=== PATIENT | female | born 1955 | race Caucasian/White ===

== ENCOUNTER 2019-06-26 16:27 | Inpatient (IN) | payer OTHER ==
[~2019-06-26] VITALS: Ht 137.2 cm; Wt 164.7 kg
[~2019-06-26 16:27] MED LIST: 12 HOUR COLD R120 M1; ADVAIR 250-501 EACH INH; ADVAIR HFA 230M12 GM; ADVAIR HFA 230M12 GM INH; ALBUTEROL2.5 MG/0.1 INH; ASPIR 8181 MG PO; ASPIRIN81 M2 PO; ATORVASTATIN CA40 MG PO; BUSPIRONE HCL10 MG PO; BUSPIRONE HCL15 MG PO; CIPRO500 MG PO; COMPAZINE25 MG PO; CYMBALTA20 MG PO; CYMBALTA30 MG PO; CYMBALTA60 MG PO; DIABETA 5MG TABL5 MG PO; DUONEB 2.5-0.5 M3 ML INH; FLAGYL500 MG PO; FLONASE 0.05%50 MCG NASAL; GLUCOSAMINE CH1 EA10 PO; GLUCOTROL5 MG PO; HUMALOG100 UNIT/2 SUBQ; HYDROCODONE-AP1 EAC6 PO; IRON325 PO; KLOR-CON 1010 MEQ; LASIX 20 MG TAB20 MG PO; LEVEMIR100 UNIT/1 SUBQ; LIPITOR 40 MG T40 M1 PO; LISINOPRIL20 MG PO; MACROBID 100 M100 M1 PO; MELATONIN3 MG PO; MILK OF MA2400 MG/10 PO; MIRALAX17 GM PO; MUCINEX TA600 MG/TA2 PO; NEURONTIN600 MG PO; NORCO 5-325 TA1 EACH; NORCO 5-325 TA1 EACH PO; NORVASC5 MG PO; NYAMYC15 GM TOP; ONDANSETRON HCL4 M2 PO; OXYBUTYNIN 5 MG5 M2 PO; PAIN RELIEVER325 MG PO; PHENERGAN 25 MG25 M1 PO; PROAIR HFA8.5 GM; PROAIR HFA8.5 GM INH; REGLAN 10 MG TA10 MG PO; SENOKOT-S1 TA1 PO; SINGULAIR 10 MG10 M1 PO; SPIRIVA INH; TRAZODONE HCL100 MG PO; VESICARE 5 MG TA5 MG PO; XANAX 0.25 MG0.25 MG; XANAX 0.25 MG0.25 MG PO; ZESTRIL40 MG PO; ZOFRAN ODT4 MG; ZPAK PO; ZYRTEC10 MG PO; [UNRECOGNIZED DRUG - OTHER]
[2019-06-26] MEDS ORDERED: ALLOPURINOL 10100 M2 PO (16:32)
[2019-06-26 16:33] VITALS: BP 192/68
[2019-06-26] MEDS ORDERED: REPLESTA50000 UNIT PO (16:35)
[2019-06-26] MEDS ORDERED: IPRAT-ALBUT 0.5-3 ML INH (16:37)
[2019-06-26] MEDS ORDERED: LOPERAMIDE1 MG/7.5 M PO (16:39)
[2019-06-26] MEDS ORDERED: MELATONIN3 M1 PO (16:49)
[2019-06-26] MEDS ORDERED: UNICOMPLEX M TA1 TA1 PO (16:50)
[2019-06-26 16:52] LABS: BE(vivo) 1.5 mmol/L (-2 to +3); HCO3 25.7 mmol/L (22.0-26.0); PCO2 38.9 mmHg (35.0-45.0); PO2 79.8 mmHg (80.0-100.0); pH 7.438 (7.360-7.450); sO2 96.2 % (92.0-98.0)
[2019-06-26] MEDS ORDERED: NEOSPORIN OINT1 EACH TOP (16:52)
[2019-06-26] MEDS ORDERED: PERCOCET 5-3251 EACH PO (16:53)
[2019-06-26] MEDS ORDERED: PAZEO2.5 ML OPHTHALMIC (16:55)
[2019-06-26] MEDS ORDERED: CVS SENNA PLUS1 EACH PO (16:56)
[2019-06-26] MEDS ORDERED: TOPROL XL25 MG PO (17:00)
[2019-06-26] MEDS ORDERED: MAPAP325 MG PO (17:01)
[2019-06-26] MEDS ORDERED: ALPRAZOLAM 0.50.5 MG PO (17:02)
[2019-06-26 17:18] LABS: HEMATOCRIT 29.6 % (37.0-47.0); HEMOGLOBIN 9.8 gm/dL (12.0-15.0); MCH 29.6 pg (26.0-34.0); MCV 89.5 fL (80.0-100.0); PLATELET COUNT 157 thou/uL (150-400); RBC 3.31 mil/uL (4.20-5.00); RDW 16.3 % (10.5-14.5); WBC 8.3 thou/uL (4.0-11.0)
[2019-06-26 17:27] LABS: ANION GAP 9 mmol/L (7-16); BUN 28 mg/dL (7-18); CALCIUM 9.3 mg/dL (8.5-10.1); CHLORIDE 91 mmol/L (98-107); CO2 30 mmol/L (21-32); CREATININE 2.1 mg/dL (0.6-1.0); GLUCOSE 350 mg/dL (74-106); POTASSIUM 4.8 mmol/L (3.5-5.1); SODIUM 130 mmol/L (136-145)
[2019-06-26 17:32] LABS: APTT 33.6 Seconds (24.5-32.8); INR 1.3; PROTIME 13.7 Seconds (9.3-11.4)
[2019-06-26 17:38] LABS: ALBUMIN 3.2 g/dL (3.4-5.0); MAGNESIUM 1.4 mg/dL (1.8-2.4); SGOT 43 U/L (15-37); SGPT 34 U/L (30-65); TOTAL BILIRUBIN 1.9 mg/dL (<0.1-1.0)
[2019-06-26 17:43] LABS: ABSOLUTE NEUTROPHILS 6.7 thou/uL (1.4-8.2); ANISOCYTOSIS 1+
[2019-06-26 17:55] LABS: TROPONIN-I <0.06 ng/mL (<0.06)
[2019-06-26 18:37] VITALS: BP 167/74
[2019-06-26 18:44] LABS: URINE BILIRUBIN NEGATIVE (Negative); URINE BLOOD 3+ (Negative); URINE CLARITY CLOUDY; URINE COLOR YELLOW; URINE GLUCOSE-RANDOM* NEGATIVE (Negative); URINE KETONES NEGATIVE (Negative); URINE PROTEIN (DIPSTICK) 2+ (Negative); URINE SPECIFIC GRAVITY 1.015 (1.005-1.035); URINE UROBILINOGEN 0.2 E.U./dl (0.2-1.0)
[2019-06-26 18:53] LABS: URINE LEUKOCYTES-REFLEX 3+ (Negative); URINE NITRITE-REFLEX POSITIVE (Negative)
[2019-06-26 18:56] LABS: BACTERIA-REFLEX >30 Many /HPF (None Seen); CASTS None Seen /LPF (None Seen); CRYSTALS None Seen /LPF (None Seen); MUCUS 4-6 Moderate strn/LPF (None Seen); SQUAMOUS 4-10 Moderate /LPF (0-3); TRANSITIONAL EPITHEL CELL 4-10 Moderate /LPF (None Seen); URINE RBC >20 Many /HPF (0-2); URINE WBC-REFLEX >25 Many /HPF (0-5)
[2019-06-26 19:31] VITALS: BP 118/62
[2019-06-26 19:43] VITALS: BP 142/73
--- NOTE | 2019-06-26 22:34 | NUR ---
ASSUMED ARE FROM ED PT UPON ARRIVAL TO UNIT NOTED TO BE SOA WHEN MOVED TO BED, NON-PROD COUGH NOTED LUNG SOUNDS DIMINSHED THROUGHOUT, RESP TREATMENTS ORDERED, DATA BASE AND ASSESSMNET COMPLETED. RESTORATIVE REHAB AIDE SHOWS [address] . DISUSSED PLAN OF CARE AND PT AGREEMENT AND VERBALIZED UNDERSTANDING.
[2019-06-26 23:57] VITALS: BP 126/83
[2019-06-27 04:31] VITALS: BP 132/80
[2019-06-27 07:11] VITALS: BP 129/88
--- NOTE | 2019-06-27 07:36 | EKG ---
[address] [place] [place] [address] ELECTROCARDIOGRAM REPORT Name: JOSE TSANG Room #: 351-P ADM IN M.R.#: [id number] Admission: 06/26/19 Attend Phys: Macho Elder Discharge: Date of : 55 Report #: [id number] THIS REPORT FOR: //name// [facility] ED Test Date: 2019-06-26 Test Time: 17:53:52 Pat Name: JOSE TSANG Department: Room: [facility] Gender: F Biometrics Technician: IAN : 1955 Requested By: Edgar Moncada Order Number: [id number] MD: Roshan Keyes Measurements Intervals [place] Rate: 127 P: 63 RI: 137 QRS: 26 QRSD: 79 T: 18 QT: 326 QTc: 475 Interpretive Statements Sinus tachycardia Nonspecific ST and T wave abnormality Compared to ECG 05/24/2016 23:11:18 Nonspecific change in the ST and T-wave segments Electronically Signed On 06-27-2019 7:36:25 ROVER TENDER by Roshan Keyes [email or web address] <ELECTRONICALLY SIGNED> By: Roshan Keyes MD, [facility] 06/27/19 0736 [id number] Roshan Keyes MD, [facility] /EPI
[2019-06-27 11:21] VITALS: BP 129/77
--- NOTE | 2019-06-27 12:02 | NUR ---
Nutrition: Assessed due to consult for obesity, BMI 87.5 kg/m2 per wt of 363#. Resides at nursing facility, admit w/ sepsis, COPD, hypoxia, AMS, ANGELINA. Hx: COPD, DM. No weight hx to review x 4 yrs. Limited in food options at care center and food prepared by staff. She does on occasion travel to market for things like spinach, fresh produce, cottage cheese. Uses motorized wheelchair per EMR. Wt loss likely to be very minimal given activity limitations, but RD heavily focused on portion control, better food swaps, and limit carb intake to ideally 30 g/meal. Explained example of protein meal paired w/ 30 g CHO. Discussed snacks of fruit/vegetables w/ boiled egg for example. Encouraged pt to be proactive and make menu changes while here to limit CHO/calorie intake. Low nutrition risk otherwise.
--- NOTE | 2019-06-27 12:21 | NUR ---
INITIAL ASSESSMENT: Received consult due to pt being admitted from nursing facility. SW reviewed chart and spoke with nursing and attending physician. Pt was admitted from [facility] due to sepsis/COPD. TRACIE met with pt at bedside. Introduced role of SW. Pt is alert/orientated x 4. Pt reports she has lived at [place] for about 6 years. Pt is normally w/c bound and is on 3L of continuous O2 at the facility. Pt confirms plan to return to [facility] when medically stable. Pt requested SW contact her dtr, Rea, to provide update. SW left voice message for Rea. discharge planner to fax clinical info to [facility] for review. Pt may be ready for discharge back to [facility] on Tuesday or over the holiday weekend. TRACIE is following to assist as needed with discharge planning.
--- NOTE | 2019-06-27 15:00 | NUR ---
DISCHARGE PLANNING. ANTICIPATED DISCHARGE PLANNED FOR TUESDAY. PATIENT RESIDES AT [facility] UNIT. PLAN IS FOR PATIENT TO RETURN TO [facility] ONCE MEDICALLY READY FOR DISCHARGE. IRAIDA THOMAS ADMISSIONS AWARE AND COMPLETED BEDSIDE EVAL WITH PATIENT TODAY. CLINICAL INFORMATION FAXED TO [facility]. FOLLOWING TO ASSIST.
[2019-06-27 15:05] VITALS: BP 125/75
--- NOTE | 2019-06-27 19:39 | NUR ---
PT is A&OX3, PT's vs are stable, RN has reported to dr about pt's hgb 5.3 today, new order received.pt does not have n/v and s/s of GI bleeding.
[2019-06-27 19:41] VITALS: BP 136/79
--- NOTE | 2019-06-27 19:45 | NUR ---
pt is A&OX3, PT is continuing IV abx and BS management, pt's vs and o2sat are stable.
[2019-06-28 03:21] VITALS: BP 150/83
--- NOTE | 2019-06-28 04:13 | NUR ---
Assumed pt care at 1900. Pt is A/OX4,pleasant with no anxiety noted this shift. VSS. C/o a headache medicated with Tylenol with relief reported at this time. Female catheter in place and patent,had a large BM this morning;used a bedpan. Resting quietly without any distress,oxygen on at 4L/NC. Fall precautions in place. Contact isolation maintained.
[2019-06-28 07:13] VITALS: BP 138/79
[2019-06-28 11:42] VITALS: BP 150/88
[2019-06-28 16:23] VITALS: BP 172/85
--- NOTE | 2019-06-28 18:48 | NUR ---
pt is A&OX3, PT is continuing iv ABX and BS management, RN has called dr to report pt's BS (500-600), and positive Urine culture, pt's insulin dose has increase and IV abx has changed, RN has reported to dr about new consult endocrinology cannot reach today, RN will report to next shift to follow up.pt is continuing o2 3L/min/nc, pt's vs are stable , pt denies pain ,n/v and sob at this time.
[2019-06-28 19:08] VITALS: BP 155/85
[2019-06-29 03:35] VITALS: BP 139/78
[2019-06-29 04:55] LABS: CALCIUM 9.8 mg/dL (8.5-10.1); CREATININE 1.4 mg/dL (0.6-1.0); POTASSIUM 4.4 mmol/L (3.5-5.1)
--- NOTE | 2019-06-29 07:24 | NUR ---
ISO PRECAUTIONS IN PLACE FOR MRSA IN NARES. BREATHING TX PER POC. BLOOD SUGAR MANAGEMENT IS THE GOAL, SEE LABS FOR AMOUNTS. EXTERNAL CATH IN PLACE DUE TO MOBILITY AND BEING ON LASIX. CONSULT FOR LAYBOY OPERATOR CALLED YESTERDAY, AND HE WILL BE OUT OF TOWN UNTIL TUESDAY. PT STATES NO PAIN. VSS STABLE, AND TELE SHOWS SR. HOURLY ROUNDING.
[2019-06-29 08:00] VITALS: BP 141/84
[2019-06-29] MEDS ORDERED: CEFUROXIME500 MG PO (08:24)
[2019-06-29] MEDS ORDERED: LANTUS SUBQ (08:25)
[2019-06-29] MEDS ORDERED: HUMALOG100 UNIT/1 SUBQ (08:25)
--- NOTE | 2019-06-29 09:57 | NUR ---
PATIENT TO DC TODAY TO RETURN TO [facility]. ARRANGED VAN FOR [id number] VIA [employer]. CALLED DTR 3X AND PHONE NUMBER NO T ACCEPTING MESSAGES. FAXED ORDERS TO [facility] AND NOTIFIED ADMISSIONS OF DC. NO FURTHER NEEDS
--- NOTE | 2019-06-29 11:33 | NUR ---
Assumed care approx. 0700 this AM. Discharge orders obtained. Chart copy made and sent with patient. IV and tele dc'd. Report called to [place]; a call back number was left for the charge nurse to call back for an update. Pt left at 1120 via transporter and wheelchair van on 4LNC. Pt was on 3LNC but was short of breath from transporting from the bed to wheelchair. Will wait for facility to call for an update.
== END 2019-06-29 11:20 | DRG 871 ==
LOC: ER 16:27 → 3W 18:23 → EROBS 18:23 → 3W 19:35
PROVIDERS: Emergency Medicine; ADMIT Hospitalist
DX: A41.9 Sepsis, unspecified organism (principal); J15.6 Pneumonia due to other Gram-negative bacteria; J96.90 Respiratory failure, unspecified, unspecified whether with hypoxia or hypercapnia; J44.0 Chronic obstructive pulmonary disease with (acute) lower respiratory infection; N39.0 Urinary tract infection, site not specified; Z68.45 Body mass index [BMI] 70 or greater, adult; E66.01 Morbid (severe) obesity due to excess calories; J45.909 Unspecified asthma, uncomplicated; F41.9 Anxiety disorder, unspecified; F32.9 Major depressive disorder, single episode, unspecified; E78.5 Hyperlipidemia, unspecified; M19.90 Unspecified osteoarthritis, unspecified site; E11.40 Type 2 diabetes mellitus with diabetic neuropathy, unspecified; D64.9 Anemia, unspecified; N18.9 Chronic kidney disease, unspecified; G47.33 Obstructive sleep apnea (adult) (pediatric); E11.22 Type 2 diabetes mellitus with diabetic chronic kidney disease; B96.89 Other specified bacterial agents as the cause of diseases classified elsewhere; I12.9 Hypertensive chronic kidney disease with stage 1 through stage 4 chronic kidney disease, or unspecified chronic kidney disease; B96.4 Proteus (mirabilis) (morganii) as the cause of diseases classified elsewhere; Z79.4 Long term (current) use of insulin; Z90.710 Acquired absence of both cervix and uterus; Z86.14 Personal history of Methicillin resistant Staphylococcus aureus infection; Z88.0 Allergy status to penicillin; Z79.899 Other long term (current) drug therapy
CPT/HCPCS: 10879

== ENCOUNTER 2020-01-27 22:10 | Inpatient (IN) | payer OTHER ==
[~2020-01-27] VITALS: Ht 139.7 cm; Wt 167.7 kg
[~2020-01-27 22:10] MED LIST changes: +ALLOPURINOL 10100 M2 PO; +ALPRAZOLAM 0.50.5 MG PO; +CEFUROXIME500 MG PO; +CVS SENNA PLUS1 EACH PO; +HUMALOG100 UNIT/1 SUBQ; +IPRAT-ALBUT 0.5-3 ML INH; +LANTUS SUBQ; +LOPERAMIDE1 MG/7.5 M PO; +MAPAP325 MG PO; +MELATONIN3 M1 PO; +NEOSPORIN OINT1 EACH TOP; -OXYBUTYNIN 5 MG5 M2 PO; +OXYBUTYNIN ER 55 M1 PO; +PAZEO2.5 ML OPHTHALMIC; +PERCOCET 5-3251 EACH PO; +REPLESTA50000 UNIT PO; +TOPROL XL25 MG PO; +UNICOMPLEX M TA1 TA1 PO
[2020-01-27 22:11] VITALS: BP 146/68
[2020-01-27 22:42] LABS: URINE BILIRUBIN NEGATIVE (Negative); URINE BLOOD 3+ (Negative); URINE CLARITY SL CLOUDY; URINE COLOR YELLOW; URINE GLUCOSE-RANDOM* NEGATIVE (Negative); URINE KETONES NEGATIVE (Negative); URINE PROTEIN (DIPSTICK) 2+ (Negative); URINE SPECIFIC GRAVITY 1.015 (1.005-1.035); URINE UROBILINOGEN 0.2 E.U./dl (0.2-1.0)
[2020-01-27 22:48] LABS: URINE LEUKOCYTES-REFLEX 2+ (Negative); URINE NITRITE-REFLEX POSITIVE (Negative)
[2020-01-27 22:48] LABS: ABSOLUTE NEUTROPHILS 5.3 thou/uL (1.4-8.2); BASOPHILS 0.2 % (0.0-2.0); EOSINOPHILS 0.1 % (0.0-3.0); HEMATOCRIT 31.2 % (37.0-47.0); HEMOGLOBIN 10.6 gm/dL (12.0-15.0); MCH 30.1 pg (26.0-34.0); MCV 88.6 fL (80.0-100.0); MONOCYTES 7.1 % (1.0-8.0); PLATELET COUNT 111 thou/uL (150-400); POLYS 79.6 % (36.0-66.0); RBC 3.52 mil/uL (4.20-5.00); RDW 16.2 % (10.5-14.5); WBC 6.6 thou/uL (4.0-11.0)
[2020-01-27 22:49] LABS: CALCIUM 8.3 mg/dL (8.5-10.1); CREATININE 1.5 mg/dL (0.6-1.0); POTASSIUM 3.9 mmol/L (3.5-5.1)
[2020-01-27 22:50] LABS: BACTERIA-REFLEX >30 Many /HPF (None Seen); CASTS None Seen /LPF (None Seen); CRYSTALS None Seen /LPF (None Seen); MUCUS None Seen strn/LPF (None Seen); SQUAMOUS None Seen /LPF (0-3); URINE RBC >20 Many /HPF (0-2); URINE WBC-REFLEX >25 Many /HPF (0-5)
[2020-01-27] MEDS ORDERED: BREO ELLIPTA 11 EACH INH (22:50)
[2020-01-27] MEDS ORDERED: CYMBALTA30 MG PO (22:52)
[2020-01-27] MEDS ORDERED: GAS RELIEF80 MG PO (22:54)
[2020-01-27] MEDS ORDERED: GLUCOSAMINE HC500 M1 PO (22:55)
[2020-01-27] MEDS ORDERED: FUROSEMIDE 40 M40 M1 PO (22:58)
[2020-01-27] MEDS ORDERED: PERCOCET 5-3251 EACH PO (23:04)
[2020-01-27] MEDS ORDERED: SELSUN BLUE207 M2 TOP (23:08)
[2020-01-27] MEDS ORDERED: SALINE NOSE SPR45 ML NASAL (23:08)
[2020-01-27] MEDS ORDERED: SENNA PLUS TAB1 EACH PO (23:09)
[2020-01-27] MEDS ORDERED: SPIRIVA18 MCG INH (23:14)
[2020-01-27] MEDS ORDERED: TOPROL XL25 MG PO (23:14)
[2020-01-27] MEDS ORDERED: XANAX 0.5 MG0.5 M1 PO (23:16)
[2020-01-27] MEDS ORDERED: TYLENOL325 M1 PO (23:17)
[2020-01-28] VITALS (7 sets, daily range): BP systolic 126–149; BP diastolic 57–78
[2020-01-28 00:59] LABS: BE(vivo) 5.2 mmol/L (-2 to +3); HCO3 29.2 mmol/L (22.0-26.0); PCO2 40.9 mmHg (35.0-45.0); PO2 58.6 mmHg (80.0-100.0); pH 7.472 (7.360-7.450)
[2020-01-28 02:10] LABS: CHOLESTEROL 91 mg/dL (<200); HDL CHOLESTEROL 27 mg/dL (>40); LDL CHOLESTEROL 45 mg/dL (<100); TC:HDL 3.4 Ratio (Not establshd); TRIGLYCERIDE 98 mg/dL (<150); VLDL 20 mg/dL (<40)
[2020-01-28 02:12] LABS: SERUM ASSESSMENT Clear
--- NOTE | 2020-01-28 06:52 | NUR ---
PT ADMITTED TO ROOM 353 AT 0255. INITIALLY BREATHING VERY LABORED WITH SIGNIFICANT CONGESTION HEARD WITHOUT STETHESCOPE. PT GIVEN IV LASIX 20 MG X1 WELL BREATHING TX AND STERIODS PER PHYSICIAN ORDER. PT REMAINS TACHYPNIC (RATE 25-28) BUT FEELS LESS SOA. LUNGS REMAIN COARSE WITH SCATTERED RALES. MONITOR SR-ST, 90-110. CERVANTES DRAINING ADEQUATE AMOUNT OF URINE.
[2020-01-28 12:31] LABS: ALBUMIN 2.7 g/dL (3.4-5.0); DIRECT BILIRUBIN < 0.1 mg/dL (<0.1-0.2); SGPT 30 U/L (30-65); TOTAL BILIRUBIN 0.4 mg/dL (0.2-1.0); TOTAL PROTEIN 6.5 g/dL (6.4-8.2)
[2020-01-28 14:36] LABS: SGOT 48 U/L (15-37)
--- NOTE | 2020-01-28 15:23 | NUR ---
INITIAL ASSESSMENT: Received consult. TRACIE reviewed chart and spoke with nursing and attending physician. Pt was admitted from [facility]. Pt in Enhanced Isolation. Pt had positive COVID-19 test. SW placed call to pt's room. No answer. SW attempted to reach pt's dtr, Rea, via phone. Per chart, pt has lived at [place] for about 6 years. Pt is normally w/c bound and is on 3L of continuous O2 at the facility. TRACIE to fax clinical info to [place] for review. TRACIE is following to assist as needed with discharge planning.
--- NOTE | 2020-01-28 16:03 | NUR ---
ASSUMED PATIENT CARE TODAY AT APPROXIMATELY 7AM. PATIENT AWAKE ALERT ORIENTED THROUGHOUT SHIFT. MEDS AND ASSESSMENTS CHARTED. O2 SATS REMAINED STABLE ON 4LNC. CERVANTES WITH GOOD URINE OUTPUT. COVID RESULTS POSITIVE THIS SHIFT. DR. WHITEHEAD CONSULTED.
--- NOTE | 2020-01-28 21:27 | NUR ---
PT RESTING IN BED WATCHING TV. O2 PER NC 4L. LUNGS COARSE PT SOA WITH CONVERSATION AND MOVEMENT. PT OBESE GENERALIZED EDEMA. DISCUSSED WITH PT FIRST DOSE OF REMDESIVIR AND REVIEWED HER CONSENT AND PT STATED SHE HOPES THAT ALL OF THE MEDICATIONS IMPROVE HOW CLOGGED HER EARS ARE SO SHE CAN HEAR BETTER. PT ASSISTED STAFF WITH REPOSITIONING. BILLY TO ANGLE. PT COMPLIANT WITH MEDS AND HS SNACK. PRN ANXIETY PROVIDED. PT CALLS FOR ASSISTANCE.
--- NOTE | 2020-01-28 22:48 | NUR ---
PT HAS APPROXIMATELY 50CC LEFT OF REMDESIVIR LOADING DOSE. PT REPORTED HANDS FEELING LIKE SKIN IS TIGHT AND SHINY LIKE A BALLOON. PT DOES NOT HAVE AN INFILTRATED IV AND HANDS ARE NOT MORE EDEMATOUS. PROVIDER NOTIFIED OF PTS STATEMENT. VS STABLE, PT CHEERFUL TALKATIVE, NO NEW ORDERS.
[2020-01-29 05:21] VITALS: BP 122/69
--- NOTE | 2020-01-29 05:39 | NUR ---
PT DECLINED REPOSITIONING THROUGHOUT THE NIGHT. PT STATED SHE IS GOING TO ASK FOR ASSISTANCE TO SIT ON THE EDGE OF BED FOR BREAKFAST. PRN FOR HEADACHE AND GENERALIZED PAIN THIS AM.
[2020-01-29 06:40] LABS: ABSOLUTE NEUTROPHILS 4.8 thou/uL (1.4-8.2); HEMATOCRIT 29.5 % (37.0-47.0); HEMOGLOBIN 9.7 gm/dL (12.0-15.0); LYMPHOCYTES 6.8 % (24.0-44.0); MCH 29.5 pg (26.0-34.0); MCHC 32.9 g/dL (28.0-37.0); MCV 89.9 fL (80.0-100.0); MONOCYTES 6.3 % (1.0-8.0); PLATELET COUNT 118 thou/uL (150-400); POLYS 86.9 % (36.0-66.0); RBC 3.28 mil/uL (4.20-5.00); RDW 15.9 % (10.5-14.5); WBC 5.5 thou/uL (4.0-11.0)
[2020-01-29 07:19] LABS: CALCIUM 8.1 mg/dL (8.5-10.1); CREATININE 1.4 mg/dL (0.6-1.0); MAGNESIUM 1.4 mg/dL (1.8-2.4); POTASSIUM 3.6 mmol/L (3.5-5.1)
[2020-01-29 07:28] VITALS: BP 127/67
--- NOTE | 2020-01-29 07:56 | EKG ---
[facility] [address] [place] [facility] [place] [address] ELECTROCARDIOGRAM REPORT Name: JOSE TSANG Room #: 353- ADM IN M.R.#: [id number] Admission: 01/28/20 Attend Phys: Humberto Vazquez MD Discharge: Date of : 55 Report #: [id number] THIS REPORT FOR: cc: Briana Valero,Briana Francisco,Roshan Saunders MD [facility] ~ THIS REPORT FOR: //name// [facility] ED Test Date: 2020-01-27 Test Time: 22:24:35 Pat Name: JOSE TSANG Department: Room: [facility] Gender: F Prime Minister: RENETTA : 1955 Requested By: Raphael Browne Order Number: [id number] MD: Roshan Keyes Measurements Intervals [place] Rate: 122 P: 72 SD: 150 QRS: 22 QRSD: 75 T: QT: 334 QTc: 476 Interpretive Statements Sinus tachycardia Borderline T wave abnormalities Borderline prolonged QT interval Compared to ECG 06/26/2019 17:53:52 No significant change was found Electronically Signed On 01-29-2020 7:56:21 CDT by Roshan Keyes [email or web address] <ELECTRONICALLY SIGNED> By: Roshan Keyes MD, [facility] 01/29/20 0756 23 Roshan Keyes MD, [facility] /EPI
[2020-01-29 11:31] VITALS: BP 142/77
--- NOTE | 2020-01-29 14:43 | NUR ---
TRACIE reviewed chart and spoke with nursing and attending physician. Pt remains in Enhanced Isolation due to COVID-19. TRACIE attempted to call pt in room, multiple times. No answer. TRACIE faxed clinical info to [place] and spoke with Salma, in admissions. Per Salma, they will need a negative COVID test prior to accepting pt back. TRACIE notified attending physician. TRACIE is following to assist as needed with discharge planning.
[2020-01-29 15:59] VITALS: BP 112/60
--- NOTE | 2020-01-29 19:30 | NUR ---
PT IS A&OX3, PT IS CONTINUING IV ABX AND O2 3L/MIN/NC, PT'S VS ARE STABLE , PT HAS NEW ORDER TO MANAGE PT'S BS, PT HAS SOB WITH ACTIVITIES, PT DENIES PAIN AT THIS TIME.
[2020-01-29 19:50] VITALS: BP 149/83
[2020-01-30] VITALS (8 sets, daily range): BP systolic 132–178; BP diastolic 70–83
--- NOTE | 2020-01-30 05:53 | NUR ---
PT IS A/OX4, AND NOTTAWASEPPI POTAWATOMI. CERVANTES IN PLACE AND SHOWS GOOD URINE OUTPUT. FALL AND ISOLATION PRECAUTIONS IN PLACE. PT IS COVID+. FOLLOWING POC WITH IVPB ANTIBIOTICS/ANTIVIRALS FOR UTI, HCAP, AND COVID. PT CAN VOCALIZE NEEDS AND CALL LIGHT WITHIN REACH.
--- NOTE | 2020-01-30 05:58 | NUR ---
GOAL FOR THE NIGHT WAS TO GET PT'S BLOOD SUGAR IN LINE. PT STATES ITS USUALLY AROUND 150. 2100 BS WAS 500, GAVE 60 UNITS LONG ACTING AND 20 UNITS SHORT ACTING. CALLED FIRE PROTECTION SPECIALIST SPOKE WITH HER. RETEST IN TWO HOURS AND DOSE ACCORDINGLY AFTER THAT. 2400 BS WAS 415 AND 20 UNITS SA GIVEN. AT 0200 BS WAS 351. CALLED FIRE PROTECTION SPECIALIST AGAIN, SAID TO RECHECK IN AM AND DOSE ACCORDINGLY AGAIN.
[2020-01-30 07:25] LABS: HEMOGLOBIN 10.1 gm/dL (12.0-15.0); MCH 30.1 pg (26.0-34.0); MCHC 33.6 g/dL (28.0-37.0); MCV 89.6 fL (80.0-100.0); RBC 3.35 mil/uL (4.20-5.00); RDW 15.8 % (10.5-14.5); WBC 7.8 thou/uL (4.0-11.0)
[2020-01-30 07:39] LABS: CALCIUM 8.3 mg/dL (8.5-10.1); CREATININE 1.4 mg/dL (0.6-1.0); POTASSIUM 3.9 mmol/L (3.5-5.1)
--- NOTE | 2020-01-30 09:49 | NUR ---
PATIENT DROWSY BUT AROUSABLE. VITALS STABLE AND DENIES PAIN. NON PRODUCTIVE COUGH AND PATIENT STATES EARS CLOGGED UP MAKING IT HARD TO HEAR. TOLERATING DIET W/O NAUSEA. CERVANTES WITH ADEQUATE OUTPUT. WILL CONTINUE WITH POC. BED IN LOW POSITION AND LOCKED AND CALL LIGHT WITHIN REACH. PATIENT STATES UNDERSTANDING TO CALL FOR ASSISTANCE.
--- NOTE | 2020-01-30 11:13 | HC ---
[facility] [place] [address] CONSULTATION Name: JOSE TSANG Room #: 353-P [facility] IN ..#: [id number] Admission: 01/28/20 Attend Phys: Humberto Vazquez MD Discharge: Date of : 55 Report #: [id number] THIS REPORT FOR: cc: Briana Valero,Javier Quick MD ~ CC: Humberto Valero DATE OF SERVICE: 01/29/2020 CONSULTING PHYSICIAN: Dr. Vazquez. REASON FOR CONSULTATION: Uncontrolled type 2 diabetes mellitus, severe hyperglycemia. HISTORY OF PRESENT ILLNESS: This is a 64-year-old female patient whose medical background is significant for multiple medical issues including type 2 diabetes mellitus, COPD with history of hypoxic respiratory failure, severe obesity, asthma and hypertension. The patient resides at a [facility] at [place]. The patient was transferred to our Emergency Room yesterday with complaints of shortness of breath, progressing over the past 3 days despite aggressive treatment with nebulizer therapy at her fdc. On arrival to the ER, the patient was worked up and was later found to be COVID-19 positive and was admitted for further care and monitoring. The patient has been a diabetic for many years and is maintained on a regimen of Lantus insulin 75 units twice a day, NovoLog insulin 20 units t.i.d. a.c. These dosages are obtained from her detailed fdc record found in her chart as she was not able to specify the exact amount of insulin that she receives. Furthermore, she could not be specific in regards to her blood glucose pattern at home and was simply able to say that they mostly do well. The patient does not believe she has issues with hypoglycemia. She vaguely recalls having been told that diabetes mellitus had caused a degree of eye damage and kidney disease. She has peripheral numbness and tingling as well. During this hospital stay, the patient was started on a regimen containing IV glucocorticoid therapy to address her COVID-19 infection and has since developed severe hyperglycemia with blood glucose values persisting over 400 mg/dL. REVIEW OF SYSTEMS: CONSTITUTIONAL: Fatigue, tiredness, but not fever or chills. HEENT: Negative for sore throat, sinus pain, ear drainage. PULMONARY: Progressive shortness of breath and cough. The patient has baseline COPD and baseline asthma as well as history of chronic hypoxemic respiratory failure requiring maintenance on 2 liters of oxygen. [address] [address] CONSULTATION Name: JOSE TSANG Room #: 353-P [facility] IN [facility]#: [id number] Admission: 01/28/20 Attend Phys: Humberto Vazquez MD Discharge: Date of : 55 Report #: [id number] CARDIAC: Negative for chest pain, syncope or presyncope. GASTROINTESTINAL: Occasional issues with abdominal discomfort, abdominal distention, nausea, but no vomiting. NEUROLOGY: Negative for loss of consciousness, severe frequent headaches or seizure activity. She has intermittent difficulties with numbness and tingling affecting her lower extremities. SKIN: Negative for rash, ulceration, discoloration or other major abnormalities. Otherwise, her review of systems is noncontributory other than what is mentioned in HPI. PAST MEDICAL HISTORY: 1. Type 2 diabetes mellitus. 2. Hypertension. 3. Hyperlipidemia. 4. Chronic obstructive pulmonary disease. 5. Asthma. 6. Chronic hypoxemic respiratory failure requiring 2 liters of oxygen. 7. Gout. 8. Anemia. 9. Congestive heart failure. 10. Multiple UTIs. 11. Degenerative joint disease. 12. Anxiety. 13. Depression. 14. History of UTIs. 15. Renal insufficiency. ALLERGIES: She is allergic to PENICILLINS. OUTPATIENT MEDICATIONS: Lantus insulin 75 units b.i.d., NovoLog insulin 20 units t.i.d. a.c., Flonase daily, atorvastatin 40 mg at bedtime, Mucinex 600 mg p.o. b.i.d., gabapentin 600 mg t.i.d., enteric coated aspirin 81 mg daily, buspirone 15 mg b.i.d., MiraLax 17 grams daily, albuterol p.r.n., Singulair 10 mg at bedtime, cetirizine 10 mg daily, allopurinol 100 mg daily, loperamide 1 mg daily, multivitamins daily, Cymbalta 30 mg p.o. b.i.d., Lasix 40 mg daily, selenium twice a week, metoprolol 12.5 mg daily, alprazolam 0.5 mg p.o. at bedtime, Tylenol 325 mg q. 6 hours p.r.n. FAMILY HISTORY: Noncontributory. SOCIAL HISTORY: The patient denies use of tobacco, alcohol or illicit drugs. PHYSICAL EXAMINATION: GENERAL: Pleasant female patient who is not in apparent pain or distress. VITAL SIGNS: Blood pressure is 142/77 mmHg, heart rate is 85 beats per minute, [address] [address] CONSULTATION Name: JOSE TSANG Room #: [facility]-P [facility] IN [place].#: [id number] Admission: 01/28/20 Attend Phys: Humberto Vazquez MD Discharge: Date of : 55 Report #: [id number] respirations 16 per minute, temperature 37.1 degrees Celsius. CONSTITUTIONAL: The patient is sitting upright in bed, appears tachypneic, somewhat tired, but not in apparent pain or distress. HEENT: Anicteric sclerae. Intact extraocular motions. NECK: Supple, without JVD, no thyromegaly. CHEST: Noted for distant breath sounds bilaterally with scattered wheezes. HEART: Regular rate and rhythm without murmurs or gallops. ABDOMEN: Obese, distended, but soft. No guarding. Active bowel sounds. EXTREMITIES: Lower extremity exam is noted for edema. Stasis dermatitis bilaterally. NEUROLOGIC: Awake, alert and oriented to time, place and person. The remainder of examination is nonfocal. PSYCHIATRIC: Pleasant, interactive. Normal mood and affect. Normal thought process. LABORATORY RESULTS: Blood glucose values were reviewed and the last 4 values were well over 400 with the last being at 469 mg/dL. Sodium 138, potassium 3.6, chloride 101, CO2 of 31, anion gap 6, BUN 25, creatinine 1.4, blood glucose on arrival was 208, lipase 87. Total bilirubin 0.4, calcium 8.1, magnesium 1.4, alkaline phosphatase 58, ALT 30, total protein 6.5, albumin 2.7, EGFR 38. Total cholesterol 91, triglycerides 98, HDL 27, LDL 45. INR 1.3. White blood count 5.5, hemoglobin 9.7, hematocrit 29.5, platelets 118. COVID-19 testing was positive. Hemoglobin A1c is at 7.0%. ASSESSMENT AND PLAN: 1. Type 2 diabetes mellitus. The patient has had longstanding issues with type 2 diabetes mellitus and her history is marked by markedly large insulin requirement as noted above as she received Lantus insulin 75 units b.i.d. and NovoLog insulin 20 units t.i.d. a.c. Judging by her hemoglobin A1c of 7.0% and denying hypoglycemia issues, this seems to be a successful regimen for the patient in the outpatient setting. During this hospital stay, the patient has been maintained only on Humalog supplemental scale of high intensity and her glucose values have gradually risen to well over 400 mg/dL, especially after IV glucocorticoid therapy has been added to her regimen. Given this outlook, I would resume therapy with Lantus at a dose of 60 units b.i.d., Humalog insulin 30 units t.i.d. a.c., and taper down her Humalog supplemental scale to low intensity, so as to avoid excessive insulin dosing. Blood glucose monitoring will commence a.c. and at bedtime and further therapeutic adjustments will be made accordingly. 2. Pneumonia. The patient has been shown to have an COVID-19 infection. She is currently on remdesivir, IV Solu-Medrol, and aggressive bronchodilator and oxygen supportive therapy. [place] [id number] CONSULTATION Name: JOSE TSANG Room #: 353-P [facility] IN M.R.#: [id number] Admission: 01/28/20 Attend Phys: Humberto Vazquez MD Discharge: Date of : 55 Report #: [id number] 3. Hyperlipidemia. The patient is currently on atorvastatin therapy and tolerates it well, she is to continue with the same. 4. Diabetic neuropathy. The patient continues to be on gabapentin therapy with a fair level of control, she is to continue with the same. 5. Hypertension. The patient's level of blood pressure control is adequate on the current regimen. She is to continue with the same. I have reviewed the patient's clinical care notes, fdc care notes, laboratory data, and other pertinent information for over 35 minutes in addition to my encounter time with the patient. I certainly appreciate this consultation by Dr. Vazquez. <ELECTRONICALLY SIGNED> By: Javier Guevara MD 01/30/20 1113 1320 1642 Javier Guevara MD /nt
[2020-01-30 20:58] LABS: BE(vivo) 3.2 mmol/L (-2 to +3); HCO3 29.1 mmol/L (22.0-26.0); PCO2 50.7 mmHg (35.0-45.0); PO2 72.3 mmHg (80.0-100.0); pH 7.377 (7.360-7.450)
--- NOTE | 2020-01-30 23:52 | NUR ---
2225: PT RECEIVED TO ICU ROOM 236 FROM [facility] (353) FOR INCREASED O2 NEEDS AND POSSIBLE BIPAP. PT IS COVID POSITIVE. pCXR DONE PRIOR TO TRANSFER SHOWS INCREASED INFILTRATES BILATERALLY. PT ON 100% NRB MASK, O2 SAT 95-96%. PT STATES SHE IS HAVING LESS DYPSNEA WITH NRB MASK THAN WITH OPTI-FLOW. MONITOR SINUS RHYTHM ON ADMISSION.
[2020-01-31] VITALS (23 sets, daily range): BP systolic 96–171; BP diastolic 50–114
[2020-01-31 05:42] LABS: BE(vivo) -0.8 mmol/L (-2 to +3); HCO3 25.3 mmol/L (22.0-26.0); PCO2 47.7 mmHg (35.0-45.0); PO2 76.9 mmHg (80.0-100.0); pH 7.343 (7.360-7.450); sO2 94.6 % (92.0-98.0)
[2020-01-31 06:26] LABS: HEMOGLOBIN 10.1 gm/dL (12.0-15.0); MCH 29.9 pg (26.0-34.0); MCHC 33.5 g/dL (28.0-37.0); MCV 89.2 fL (80.0-100.0); RBC 3.37 mil/uL (4.20-5.00); RDW 15.5 % (10.5-14.5); WBC 7.5 thou/uL (4.0-11.0)
[2020-01-31 06:38] LABS: FIBRINOGEN 434.1 mg/dL (210-360); PROTIME 10.7 Seconds (9.3-11.4)
[2020-01-31 07:02] LABS: ALBUMIN 2.8 g/dL (3.4-5.0); CALCIUM 8.3 mg/dL (8.5-10.1); CREATININE 1.2 mg/dL (0.6-1.0); POTASSIUM 3.6 mmol/L (3.5-5.1); TOTAL BILIRUBIN 0.5 mg/dL (0.2-1.0); TOTAL PROTEIN 7.6 g/dL (6.4-8.2)
--- NOTE | 2020-01-31 07:28 | NUR ---
Pt remained stable on 100% NRB mask overnight but began using accessory muscles and appeared more labored about 0630. O2 sat remained 95-96%, respiratory rate 25-28. RT notified by day charge nurse to start bipap. RT currently in room with pt.
[2020-01-31 11:54] LABS: BE(vivo) 3.1 mmol/L (-2 to +3); HCO3 30.2 mmol/L (22.0-26.0); PCO2 59.1 mmHg (35.0-45.0); PO2 154.6 mmHg (80.0-100.0); sO2 98.8 % (92.0-98.0)
[2020-01-31 11:55] LABS: pH 7.326 (7.360-7.450)
--- NOTE | 2020-01-31 12:15 | NUR ---
VASCULAR ACCES CONSULTED FOR CVAD. PT'S LABS,MEDS,HISTORY,ORDER AND CONSENT VERIFIED. MEDICAL NECESSITY PER DR NAIR. NECK VERY THICK, RIJ DEEP OVER THE ARTERY. REKHA RN HELD HEAD IN POSITION FOR CVAD PLACEMENT. RIJ WAS WIDELY PATENT BUT DEEP. 6FR TL POWER JACC 25CM INSERTED TO 6CM EXTERNAL. PT TOLERATED WELL. STAT CXR ORDERED
--- NOTE | 2020-01-31 13:25 | NUR ---
CXR CONFIRMED CVAD IN SVC/CAJ. RIJ RELEASED FOR IMMEDIATE USE PER PROTOCOL TO REKHA PERRY
--- NOTE | 2020-01-31 13:43 | NUR ---
discussed during los, cont to use bipap and nrb 15.0L. no anticipated dc over the weekend. will need a negative covid prior to returning to [facility].
--- NOTE | 2020-01-31 16:44 | NUR ---
0700-ASSUMED CARE OF PT.--VW 07-HAD R.T. PLACE PT ON BIPAP.PT USING ALL ABD ACCESSORY MUSCLES & VERY FATIGUED. PLACED ON .80%,12/01,RR 8.--VW 1005-PT HAS RESTED WELL BUT SUDDENLY W SEVERE ANXIETY-PULLED BIPAP OFF,SATS .70%,PT SCREAMING & WILL NOT CALM DOWN.CALL TO , IN UNIT & ATIVAN GIVEN W LITTLE RELIEF. IN TO SEE SHORTLY THEREp.-VW
[2020-02-01] VITALS (20 sets, daily range): BP systolic 106–152; BP diastolic 64–93
[2020-02-01 04:24] LABS: BE(vivo) 3.7 mmol/L (-2 to +3); HCO3 29.7 mmol/L (22.0-26.0); PCO2 52.4 mmHg (35.0-45.0); PO2 62.4 mmHg (80.0-100.0); pH 7.372 (7.360-7.450)
[2020-02-01 04:47] LABS: ABSOLUTE NEUTROPHILS 5.7 thou/uL (1.4-8.2); BASOPHILS 0.1 % (0.0-2.0); HEMATOCRIT 27.8 % (37.0-47.0); HEMOGLOBIN 9.3 gm/dL (12.0-15.0); LYMPHOCYTES 5.9 % (24.0-44.0); MCHC 33.5 g/dL (28.0-37.0); MCV 89.8 fL (80.0-100.0); MONOCYTES 6.4 % (1.0-8.0); PLATELET COUNT 185 thou/uL (150-400); POLYS 87.6 % (36.0-66.0); RBC 3.09 mil/uL (4.20-5.00); RDW 15.9 % (10.5-14.5); WBC 6.5 thou/uL (4.0-11.0)
[2020-02-01 04:58] LABS: INR 1.1
[2020-02-01 05:03] LABS: FIBRINOGEN 475.4 mg/dL (210-360)
[2020-02-01 05:06] LABS: ALBUMIN 2.5 g/dL (3.4-5.0); CALCIUM 7.9 mg/dL (8.5-10.1); CREATININE 1.1 mg/dL (0.6-1.0); POTASSIUM 3.2 mmol/L (3.5-5.1); TOTAL BILIRUBIN 0.8 mg/dL (0.2-1.0); TOTAL PROTEIN 6.8 g/dL (6.4-8.2)
--- NOTE | 2020-02-01 08:52 | NUR ---
Nutrition: Pt now intubated/sedated. REC start Vital HP at 25 mL/hr with current propofol rate. If IVFs D/C, add beneprotein powder to water flushes. RD deferring fluid needs to physician due to edema. If Propofol D/C rec Vital HP at 40 mL/hr goal.
--- NOTE | 2020-02-01 18:02 | NUR ---
ASSESSMENTS AND INTERVENTIONS DOCCUMENTED. PATIENT REMIANS INTUBATED AND ON SEDATION. DR. NAIR ROUNDING ON PATIENT ORDERS TO RESTART HEPARIN GTT BUT STOP IF SIGNS OF BLEEDING START. DR. WHITEHEAD ROUNDING, NO CALL BACK FROM FAMILY ABOUT PLASMA TRANSFUSION. WAITING ON CONSENT AT THIS TIME. PATIENT REMIANS STABLE THROUGH OUT THE SHIFT. NO MAJOR ISSUES. PATIENT PROGRESSING TOWARDS GOALS AT THIS TIME EVIDENCE BY FOLLOWING COMMANDS AND REQUIRING LESS FIO2.
[2020-02-02] VITALS (17 sets, daily range): BP systolic 101–139; BP diastolic 69–93
[2020-02-02 05:21] LABS: HEMATOCRIT 29.7 % (37.0-47.0); HEMOGLOBIN 9.9 gm/dL (12.0-15.0); MCH 29.7 pg (26.0-34.0); MCHC 33.2 g/dL (28.0-37.0); MCV 89.3 fL (80.0-100.0); RBC 3.33 mil/uL (4.20-5.00); RDW 15.5 % (10.5-14.5); WBC 6.1 thou/uL (4.0-11.0)
[2020-02-02 05:43] LABS: CALCIUM 8.3 mg/dL (8.5-10.1)
[2020-02-02 05:56] LABS: POTASSIUM 2.8 mmol/L (3.5-5.1)
--- NOTE | 2020-02-02 06:01 | NUR ---
Aysha Stuart, PROFESSOR OF ENGINEERING, notified about patient's bradycardia. Patient has been bradycardic at baseline in the 40s-50s, however now drops to the 30s on occasion. Will just continue to monitor per PROFESSOR OF ENGINEERING, no new orders received at this time.
--- NOTE | 2020-02-02 17:30 | NUR ---
ATTEMPTED TO CALL PATIENT'S DAUGHTER, GIANNI, NO ANSWER ONLY WENT TO ANSWERING MACHINE. [facility] ALSO CONTACTED AND REVIEWED DAUGHTER'S PHONE NUMBER WITH THEN AND STATED THAT IT IS CORRECT. THEY STATED THAT THEY HAVE BEEN TRYING TO TO REACH HER ALSO.
[2020-02-02 17:32] LABS: HCO3 29.9 mmol/L (22.0-26.0); PO2 61.6 mmHg (80.0-100.0); pH 7.338 (7.360-7.450); sO2 89.7 % (92.0-98.0)
--- NOTE | 2020-02-02 19:59 | NUR ---
Patient required increased oxygen demands, Fi02 was increased from 50 to 60%. Pt started on potassium protocol. Pt remains lightly sedated on propopol and versed. Pt remains on an insulin drip and is acheiving glycemic control. Unable to contact patients DPOA. Patient not progressing toward outcome and goals.
[2020-02-03] VITALS (23 sets, daily range): BP systolic 93–161; BP diastolic 60–88
[2020-02-03 06:47] LABS: HEMATOCRIT 31.6 % (37.0-47.0); HEMOGLOBIN 10.6 gm/dL (12.0-15.0); MCH 29.7 pg (26.0-34.0); MCHC 33.4 g/dL (28.0-37.0); MCV 88.9 fL (80.0-100.0); RBC 3.55 mil/uL (4.20-5.00); RDW 15.9 % (10.5-14.5); WBC 15.8 thou/uL (4.0-11.0)
[2020-02-03 06:55] LABS: CALCIUM 8.5 mg/dL (8.5-10.1); CREATININE 1.3 mg/dL (0.6-1.0); POTASSIUM 3.7 mmol/L (3.5-5.1)
--- NOTE | 2020-02-03 08:46 | NUR ---
Assessments and interventions documented. Patient Heart rhythm change from sinus to afib during this shift. Provider notified and new orders where recievied. Patient remains sedated easily aroused when on sedation vacation. Able to follow simple commands. Patients daugter called and update was given. Daughter want to speake to the doctor about patients wishes and care. Spoke to DPOA as well. Person by the name of Gwendolyn Lema she can be reached at [phone]. Ms Lema states she can provid [facility] paper work. Patient stable however not progressing toward goals
--- NOTE | 2020-02-03 19:27 | NUR ---
ASSUMED CARE OF PT AT 0700, PT CONT ON THE DANIE AND NEEDS SEDFATION FOR VENT MANAGEMENT. PT HAS BEE AFIBRILE. PT RESTING CURRENTLY WITH EYES CLOSED.
[2020-02-04] VITALS (20 sets, daily range): BP systolic 109–172; BP diastolic 56–111
[2020-02-04 05:15] LABS: HEMATOCRIT 30.6 % (37.0-47.0); HEMOGLOBIN 9.7 gm/dL (12.0-15.0); MCH 29.1 pg (26.0-34.0); MCHC 31.8 g/dL (28.0-37.0); MCV 91.4 fL (80.0-100.0); RBC 3.34 mil/uL (4.20-5.00); RDW 16.1 % (10.5-14.5); WBC 15.3 thou/uL (4.0-11.0)
[2020-02-04 05:31] LABS: CALCIUM 8.5 mg/dL (8.5-10.1); CREATININE 1.5 mg/dL (0.6-1.0); POTASSIUM 4.1 mmol/L (3.5-5.1)
[2020-02-04 05:40] LABS: BE(vivo) -4.9 mmol/L (-2 to +3); HCO3 22.2 mmol/L (22.0-26.0); PCO2 50.3 mmHg (35.0-45.0); PO2 88.1 mmHg (80.0-100.0); sO2 95.4 % (92.0-98.0)
[2020-02-04 05:42] LABS: pH 7.263 (7.360-7.450)
--- NOTE | 2020-02-04 07:46 | EKG ---
[facility] [place] [address] ELECTROCARDIOGRAM REPORT Name: JOSE TSANG Room #: 236- ADM IN M.R.#: [id number] Admission: 01/28/20 Attend Phys: Humberto Vazquez MD Discharge: Date of : 55 Report #: [id number] THIS REPORT FOR: cc: Briana Valero,Briana Francisco,Roshan Saunders MD [facility] ~ THIS REPORT FOR: //name// [facility] Test Date: 2020-02-02 Test Time: 19:48:28 Pat Name: JOSE TSANG Department: Room: 236 Gender: F Motor Transport Inspector: Samanta PHILLIPS RN : 1955 Requested By: Aysha Stuart Order Number: [id number] MD: Roshan Keyes Measurements Intervals [place] Rate: 128 P: [place]: QRS: 19 QRSD: 87 T: 71 QT: 340 QTc: 496 Interpretive Statements Atrial fibrillation Borderline repolarization abnormality Borderline prolonged QT interval Compared to ECG 01/27/2020 22:24:35 Sinus tachycardia no longer present Electronically Signed On 02-04-2020 7:45:44 CDT by Roshan Keyes [email or web address] <ELECTRONICALLY SIGNED> By: Roshan Keyes MD, [facility] 02/04/20 0745 47 47 Roshan Keyes MD, [facility] /EPI
--- NOTE | 2020-02-04 08:17 | NUR ---
ASSESSMENT AND INTERVENTION DOCUMENTED. PATIENT STIL ON VENT AND SEDATED. ABLE TO FOLLOW SIMPLE COMMAND. NO ADVERSE EVENTS THROUGHUT THE NIGHT. PATIENT IS STABLE BUT NOT PROGRESS TOWARD GOALS.
--- NOTE | 2020-02-04 10:14 | NUR ---
Nutrition: TF + propofol + D5 kcals meeting 200% kcal needs. Consider decrease TF to 15 mL/hr to prevent excessive kcal provisions. If able to D/C IVFs, REC 200 mL H20 flush q 4 hrs with beneprotein powder added.
--- NOTE | 2020-02-04 11:33 | NUR ---
pt was intubated on 02/01/2020. discussed during los, remains on vent. will cont following as needed for dc needs. cm provided update to merline with juan manuel.
[2020-02-04 21:00] LABS: BE(vivo) -2.5 mmol/L (-2 to +3); PCO2 49.4 mmHg (35.0-45.0); PO2 85.8 mmHg (80.0-100.0); sO2 95.5 % (92.0-98.0)
[2020-02-04 21:01] LABS: pH 7.305 (7.360-7.450)
[2020-02-05] VITALS (22 sets, daily range): BP systolic 99–207; BP diastolic 57–135
[2020-02-05 05:15] LABS: HEMATOCRIT 28.7 % (37.0-47.0); HEMOGLOBIN 9.2 gm/dL (12.0-15.0); MCH 29.3 pg (26.0-34.0); MCHC 32.2 g/dL (28.0-37.0); MCV 90.8 fL (80.0-100.0); RBC 3.16 mil/uL (4.20-5.00); RDW 16.4 % (10.5-14.5); WBC 13.2 thou/uL (4.0-11.0)
[2020-02-05 05:26] LABS: CALCIUM 8.9 mg/dL (8.5-10.1); CREATININE 1.5 mg/dL (0.6-1.0); POTASSIUM 4.1 mmol/L (3.5-5.1)
--- NOTE | 2020-02-05 06:22 | NUR ---
Pt intubated and sedated. Able to follow simple commands when on sedation vacation. No adverse event throughout the night. Patient stable and tolerating all care. Assessment and interventions documented. Patient is not progressing toward goals evidence base by critical ABGs. Providers aware. Will continue to monitor.
[2020-02-05 08:53] LABS: BE(vivo) -1.9 mmol/L (-2 to +3); HCO3 24.3 mmol/L (22.0-26.0); PCO2 47.5 mmHg (35.0-45.0); PO2 87.7 mmHg (80.0-100.0)
[2020-02-05 08:54] LABS: pH 7.326 (7.360-7.450)
--- NOTE | 2020-02-05 09:49 | NUR ---
cm spoke with daughter den via phone call, just calling to check in with her. pt remains on vent. " on the other line with moms nurse"/daughter. cm will follow up as needed for dc needs.
--- NOTE | 2020-02-05 17:24 | NUR ---
PATIENT REMAINS INTUBATED AND SEDATED. BLOOD PRESSURE IS ELEVATED AT TIMES. TOLERATING TUBE FEEDINGS. SOME RESIDUALS NOTED. PATIENTS DAUGHTER CALLED TODAY AND REQUEST TO SPEAK TO PHYSICIAN. TEXT SENT TO PHYSICIAN. NO FURTHER CONCERNS AT THIS TIME. WILL CONTINUE TO MONITOR AND CARE PER PLAN OF CARE.
[2020-02-06] VITALS (24 sets, daily range): BP systolic 111–175; BP diastolic 65–97
[2020-02-06 06:51] LABS: HEMATOCRIT 25.2 % (37.0-47.0); HEMOGLOBIN 8.3 gm/dL (12.0-15.0); MCH 30.2 pg (26.0-34.0); MCV 91.5 fL (80.0-100.0); RBC 2.75 mil/uL (4.20-5.00); RDW 16.6 % (10.5-14.5); WBC 12.1 thou/uL (4.0-11.0)
[2020-02-06 07:10] LABS: CREATININE 1.3 mg/dL (0.6-1.0); POTASSIUM 4.4 mmol/L (3.5-5.1)
--- NOTE | 2020-02-06 08:02 | NUR ---
SEDATION VACAYTION AT 2110. FOR 10 MINUTES. PT OPENS EYES, DOESNT FOLLOW COMMANDS. +VE COUGH AND GAG. PT WAS ON PROPOFOL AT 50 MCG, FENTANYL AT 50 AND VERSED AT 3. PT WAS TACHYCARDIC, TACHYPNEIC AND HYPERTENSIVE, PROPOFOL INCREASED TO 60, THEN 70MCG, AFTER WHICH PT'S VITALS BECAME STABLE. PT HAD U/0 OF 2715 THIS SHIFT. INSULIN DRIP TITRATED PRN. TUBE FEEDING ON HOLD THROUGH THE NOC D/T HIGH RESIDUALS. PT IS STBALE NOW. WILL CONTINUE TO CLOSELY MONITOR.
--- NOTE | 2020-02-06 11:06 | NUR ---
If endocronologist stops D5 fluids, then advance tube feeding to 25ml/hr and start water flush of 200ml every 4 hrs and add 1 packet beneprotein in each flush.
--- NOTE | 2020-02-06 16:19 | NUR ---
PATIENT REMAINS INTUBATED AND SEDATED. DURING SEDATION VACATION THIS MORNING, PATIENT DID NOT FOLLOW ANY COMMANDS HOWEVER I WAS UNABLE TO LEAVE HER OFF THE SADATION FOR ANY AMOUNT OF TIME THE PATIENT'S BP WENT UP AND SO DID HER HEART RATE.PATIENT HAS BEEN AFEBRILE TODAY. SPOKE WITH PATIENT'S DAUGHTER TODAY. ADEQUATE URINE OUTPUT. NO BM NOTED. CONTINUES ON AN INSULIN DRIP. NO FURTHER CONCERNS AT THIS TIME. WILL CONTINUE TO MONITOR AND CARE PER PLAN OF CARE.
[2020-02-07] VITALS (34 sets, daily range): BP systolic 97–237; BP diastolic 41–109
[2020-02-07 04:29] LABS: HEMOGLOBIN 8.7 gm/dL (12.0-15.0); MCH 29.9 pg (26.0-34.0); MCHC 32.2 g/dL (28.0-37.0); MCV 92.9 fL (80.0-100.0); PLATELET COUNT 253 thou/uL (150-400); WBC 13.1 thou/uL (4.0-11.0)
[2020-02-07 05:11] LABS: ALBUMIN 2.4 g/dL (3.4-5.0); CREATININE 1.3 mg/dL (0.6-1.0); POTASSIUM 4.6 mmol/L (3.5-5.1); TOTAL BILIRUBIN 0.6 mg/dL (0.2-1.0); TOTAL PROTEIN 6.6 g/dL (6.4-8.2)
[2020-02-07 05:27] LABS: BE(vivo) -2.2 mmol/L (-2 to +3); HCO3 24.8 mmol/L (22.0-26.0); PCO2 54.2 mmHg (35.0-45.0); PO2 87.4 mmHg (80.0-100.0); sO2 95.4 % (92.0-98.0)
[2020-02-07 05:28] LABS: pH 7.279 (7.360-7.450)
--- NOTE | 2020-02-07 07:23 | NUR ---
SPOKE WITH DR. VANCE AT THIS TIME REGARDING ABG RESULTS THIS AM. NO NEW ORDERS AT THIS TIME.
--- NOTE | 2020-02-07 07:34 | NUR ---
DR. VANCE AT BEDSIDE AT THIS TIME. VENT SETTINGS ADJUSTED BY HIM TO ACVC RR 20, TV 400, 40% FIO2, AND PEEP OF 5.
[2020-02-07 08:38] LABS: METAMYELOCYTES 2 %; NUCLEATED RBCS 3 /100WBC; PLATELET ESTIMATE NORMAL
--- NOTE | 2020-02-07 09:57 | NUR ---
5502-5251- Sedation Vacation Turned back on sedation. Patient did not follow commands. She did open her eyes. Work of breathing increased RR 25-29. Use of accessory muscles noted. Hypertension: BP 221/101 Tachycardia: HR 106 Did not tolerate sedation vacation.
--- NOTE | 2020-02-07 15:21 | NUR ---
1521: Nurse informed Dr. Soria that patients daughter wanted her to call him. He responded at 1522 that he will call her a little later.
--- NOTE | 2020-02-07 16:33 | NUR ---
Patient spoke to patients designated contact and daughter. Patient updated that patient is not progressing towards goals. During sedation vacation patient is not remaining stable. Patients daughter also requested to speak to a doctor, Dr Soria was notified.
--- NOTE | 2020-02-07 16:48 | NUR ---
1638- Nurse talked with Dr. Soria in regards to patients blood pressure being SBP>200mmhg when awake. Physician responded by expressing hydralazine prn at 1648. When sedation increased to manage patients sedation, her blood pressure is more stable between SBP 110-150's. Nurse to continue to monitor.
--- NOTE | 2020-02-07 17:30 | NUR ---
0215- Nurse informed Dr. Leon of patients bleeding from her mouth. He looked at patient and expressed to continue to monitor for now. Continue with lovenox as ordered for now.
[2020-02-08] VITALS (24 sets, daily range): BP systolic 102–160; BP diastolic 52–77
[2020-02-08 05:50] LABS: HEMATOCRIT 25.2 % (37.0-47.0); HEMOGLOBIN 8.2 gm/dL (12.0-15.0); MCH 30.4 pg (26.0-34.0); MCHC 32.7 g/dL (28.0-37.0); RBC 2.71 mil/uL (4.20-5.00); RDW 17.1 % (10.5-14.5); WBC 14.6 thou/uL (4.0-11.0)
--- NOTE | 2020-02-08 05:51 | NUR ---
REMIANS SEDATED ON PROPOFOL, VERSED AND FENTANYL GTTS. MONITOR BLOOD SUGARS EVERY 1-2 HOURS PER INSULIN GTT PROTOCOL. REPOSITIONED NEEDED WITH BED ON ROTATION MODE. BATH COMPLETED AND PULL PAD PLACED UNDER PATIENT FOR EASIER MOVING OF PATIENT. RT INCREASED FIO2 TO 69% ON VENT DUE TO O2 SATS 88-90%. PATIENT NOW 95% ON VENT. TOLERATING VENT. REMAINS WITH BLOODY SPUTUM AND BLEEDING IN MOUTH. FREQUENT MOUTH CARE COMPLETED. DR. VANCE AWARE OF BLEEDING. CONTINUE WITH PRESENT PLAN. WORKING ON GOALS AND PLAN OF CARE FOR NOC. NOT PROGRESSING TOWARDS DISCHARGE GOALS AT THIS TIME. CONTINUE TO MONITOR CLOSELY.
[2020-02-08 06:21] LABS: CALCIUM 8.8 mg/dL (8.5-10.1); CREATININE 1.4 mg/dL (0.6-1.0); POTASSIUM 4.5 mmol/L (3.5-5.1)
--- NOTE | 2020-02-08 10:55 | NUR ---
If pt able to discontinue off propofol, then increase tube feed to new goal of 50ml/hr
--- NOTE | 2020-02-08 14:25 | NUR ---
FAXED CLINICAL UPDATE TO [facility] RECEIVED CONFIRMATION AND LEFT NSG WITH LEON IN ADM. DP TO FOLLOW.
--- NOTE | 2020-02-08 19:26 | NUR ---
PATIENT REMAINS INTUBATED; PROPOFOL DC'D, PATIENT ON PRECEDEX, VERSED, AND FENTANYL FOR SEDATION. PATIENT DOES NOT FOLLOW COMMANDS, WITHDRAWS TO PAIN AT BEST. PATIENT REMAINS ON 50% FI02 DESATED TO MID 80s ON 40% FI02. WILL CONTINUE TO FOLLOW PLAN OF CARE.
[2020-02-09] VITALS (35 sets, daily range): BP systolic 114–202; BP diastolic 55–104
[2020-02-09 06:24] LABS: HEMATOCRIT 22.6 % (37.0-47.0); HEMOGLOBIN 7.3 gm/dL (12.0-15.0); MCH 29.6 pg (26.0-34.0); MCHC 32.3 g/dL (28.0-37.0); MCV 91.7 fL (80.0-100.0); RBC 2.46 mil/uL (4.20-5.00); RDW 16.2 % (10.5-14.5); WBC 8.1 thou/uL (4.0-11.0)
[2020-02-09 06:35] LABS: CALCIUM 9.2 mg/dL (8.5-10.1); CREATININE 1.5 mg/dL (0.6-1.0); POTASSIUM 4.4 mmol/L (3.5-5.1)
--- NOTE | 2020-02-09 07:30 | NUR ---
PT NOT FOLLOWING COMMANDS OR WITHDRAWING FROM PAIN IN SEDATION VACATION. WEANING VERSED OFF AT THIS TIME. PT HAVING TUBE FEED RESIDUALS. TITRATING INSULIN DRIP. CHART CHECK. CONTINUE TO MONITOR.
[2020-02-09 10:04] LABS: HCO3 26.3 mmol/L (22.0-26.0); PCO2 58.4 mmHg (35.0-45.0); PO2 83.8 mmHg (80.0-100.0); sO2 94.7 % (92.0-98.0)
[2020-02-09 10:05] LABS: pH 7.272 (7.360-7.450)
--- NOTE | 2020-02-09 16:47 | NUR ---
PT INTUBATED AND SEDATED. NEUROLOGY CONSULTED DUE TO CHANGE IN [facility], ORDERS TO TITRATE PRECEDEX DOWN WERE GIVEN. PT NOT ABLE TO GO TO CT/MRI DUE TO COVID DX. CONSENT OBTAINED FROM DAUGHTER TO GIVE BLOOD PRODUCTS. BLOOD STARTED AT 1429, STOPPED AT 1525 DUE TO POSSIBLE REACTION. PT BECAME INCREASINGLY TACHYCARDIC, TACHYPNEIC, AND HYPERTENSIVE. HOSPITALIST WAS MADE AWARE AND BENEDRYL WAS GIVEN. HOSPITAL PROTOCAL WAS FOLLOWED IN REGARDS TO POSSIBLE REACTION. (UA, LABS, ETC). ADEQUATE UOP, WITH CLOTS PRESENT. PT CONTINUES TO HAVE MODERATE AMOUNT OF LATRICIA RED BLOOD COMING FROM MOUTH/NOSE. PT AND DAUGHTER HAVE BEEN UPDATED AND EDUCATED ON PT CONDITION AND POC. NO BM TODAY.
[2020-02-09 17:44] LABS: URINE BILIRUBIN NEGATIVE (Negative); URINE BLOOD 3+ (Negative); URINE CLARITY SL CLOUDY; URINE COLOR YELLOW; URINE GLUCOSE-RANDOM* NEGATIVE (Negative); URINE KETONES NEGATIVE (Negative); URINE LEUKOCYTES-REFLEX NEGATIVE (Negative); URINE NITRITE-REFLEX NEGATIVE (Negative); URINE PROTEIN (DIPSTICK) 1+ (Negative); URINE UROBILINOGEN 0.2 E.U./dl (0.2-1.0)
[2020-02-09 17:51] LABS: CASTS None Seen /LPF (None Seen); MUCUS >6 Heavy strn/LPF (None Seen); SQUAMOUS 0-3 Few /LPF (0-3); URINE RBC >20 Many /HPF (0-2)
[2020-02-09 17:52] LABS: BACTERIA-REFLEX None Seen /HPF (None Seen); CRYSTALS None Seen /LPF (None Seen); URINE WBC-REFLEX 0-5 Rare /HPF (0-5)
[2020-02-09 21:02] LABS: HEMATOCRIT 26.7 % (37.0-47.0); HEMOGLOBIN 8.8 gm/dL (12.0-15.0)
[2020-02-10] VITALS (24 sets, daily range): BP systolic 96–151; BP diastolic 46–76
[2020-02-10 05:56] LABS: HEMATOCRIT 24.3 % (37.0-47.0); HEMOGLOBIN 7.7 gm/dL (12.0-15.0); MCH 28.9 pg (26.0-34.0); MCHC 31.8 g/dL (28.0-37.0); MCV 90.7 fL (80.0-100.0); RBC 2.68 mil/uL (4.20-5.00); RDW 16.3 % (10.5-14.5); WBC 21.6 thou/uL (4.0-11.0)
[2020-02-10 06:00] LABS: PLATELET COUNT 262 thou/uL (150-400)
[2020-02-10 06:01] LABS: INR 1.2
[2020-02-10 06:07] LABS: FIBRINOGEN 515.8 mg/dL (210-360)
[2020-02-10 06:12] LABS: ALBUMIN 2.1 g/dL (3.4-5.0); CALCIUM 9.1 mg/dL (8.5-10.1); CREATININE 1.6 mg/dL (0.6-1.0); MAGNESIUM 2.3 mg/dL (1.8-2.4); PHOSPHORUS 5.6 mg/dL (2.5-4.9); POTASSIUM 4.2 mmol/L (3.5-5.1); TOTAL BILIRUBIN 0.5 mg/dL (0.2-1.0); TOTAL PROTEIN 6.5 g/dL (6.4-8.2)
--- NOTE | 2020-02-10 07:40 | NUR ---
PT NOT FOLLOWING COMMANDS OR WITHDRAWING FROM PAIN. PT RIGHT EYE SQUINTING WHEN SUCTIONED. SEDATION UP BECAUSE PT TACHYCARDIC, TACHYPNEIC AND HYPERTENSIVE OVERNIGHT. PT USING ACCESSORY MUSCLE TO VENITLATE. FIO2 ON VENTILATOR UP PT DESAT DURING SUCTIONING. BLOODY OUTPUT FROM ETT TUBE, BLOOD CLOTS IN RESIDUALS AND BLOOD SEDIMENTS IN URINE. HEMATOMA IN BILATERAL EYES. PT DAUGHTER UPDATED ON HOSPITAL NEEDING TO HAVE PT DPOA PAPERWORK. [facility] DID NOT SEND ANY DPOA PAPERWORK.HH TRENDING DOWN. PT TONGUE SWOLLEN AND CYANOTIC. PT LOOKS IN EXTREME PAIN. CHART CHECK. CONTINUE TO MONITOR.
[2020-02-10 10:13] LABS: ABSOLUTE NEUTROPHILS 19.2 thou/uL (1.4-8.2); ANISOCYTOSIS 1+; METAMYELOCYTES 3 %; MYELOCYTES 1 %
--- NOTE | 2020-02-10 18:19 | NUR ---
PT INTUBATED AND SEDATED. VENT SETTINGS UNCHANGED. DAUGHTER CAME TO SEE PT TODAY, WAS NOT ALLOWED TO GO IN TO ROOM PER CNO. SHE WILL BE COMING BACK TOMORROW TO SPEAK WITH THE HOSPITALIST AND MOTOR COACH CHAUFFEUR IN REGARDS TO FUTURE POC/COMFORT CARE. ADEQUATE UOP. NO BM. ALL OTHER ASSESSMENTS DOCUMENTED. MARKED DECREASE IN UOP DURING TODAYS SHIFT COMPARED TO LAST NIGHT. PT NOT PROGRESSING TOWARDS POC. WILL CONTINUE TO MONITOR.
--- NOTE | 2020-02-10 21:44 | NUR ---
PATIENT SEDATION VACATION PERFORMED AT APPROX 1999. PATIENT DOES NOT MOVE EXTREMITIES TO PAINFUL/OBNOXIOUS STIMULI. PATIENT DOES APPEAR TO GRIMACE TO PAINFUL STIMULATION. NO COUGH NOR GAG NOTED. HOWEVER HR INCREASED SPONTANEOUSLY FROM THE 90S TO 120S, AND RR ON THE VENT INCREASED FROM 20 TO THE 30S, AND WORK OF BREATHING APPEARED INCREASED. VERSED GTT RESTARTED AT 2.5 MG/HR AND FENTANYL GTT RESTARTED AT 75 MCG/HR.
[2020-02-11] VITALS (7 sets, daily range): BP systolic 108–124; BP diastolic 55–70
[2020-02-11 04:30] LABS: BE(vivo) -2.1 mmol/L (-2 to +3); HCO3 25.1 mmol/L (22.0-26.0); PCO2 58.9 mmHg (35.0-45.0); sO2 93.6 % (92.0-98.0)
[2020-02-11 04:31] LABS: pH 7.247 (7.360-7.450)
[2020-02-11 06:10] LABS: MCH 29.6 pg (26.0-34.0); MCHC 32.5 g/dL (28.0-37.0); RBC 1.98 mil/uL (4.20-5.00); RDW 16.3 % (10.5-14.5)
[2020-02-11 06:19] LABS: HEMOGLOBIN 5.9 gm/dL (12.0-15.0)
[2020-02-11 06:20] LABS: ALBUMIN 1.9 g/dL (3.4-5.0); CREATININE 2.4 mg/dL (0.6-1.0); PLATELET COUNT 179 thou/uL (150-400); POTASSIUM 4.8 mmol/L (3.5-5.1); TOTAL BILIRUBIN 0.5 mg/dL (0.2-1.0); TOTAL PROTEIN 5.9 g/dL (6.4-8.2)
--- NOTE | 2020-02-11 07:34 | NUR ---
PATIENT MECHANICALLY VENTILATED. ACVC 20, 500, 80%, PEEP 12. CRITICAL PH NOTED ON BLOOD GAS THIS MORNING, DR. NAIR INFORMED. NO NEW ORDERS. HGB 5.9 AND HCT 18 ON LAB THIS MORNING, ALSO REPORTED THESE FINDINGS TO DR. NAIR. NO NEW ORDERS AT THIS TIME. FAMILY MEMBER TO COME UP TODAY AND HAVE A MEETING WITH THE HOSPITALIST REGARDING TRANSITIONING TO COMFORT CARE. VITALS CHARTED. SEE ASSESSMENT FOR MORE INFO.
[2020-02-11 08:36] LABS: ABSOLUTE NEUTROPHILS 10.7 thou/uL (1.4-8.2); ANISOCYTOSIS 1+; METAMYELOCYTES 2 %; NUCLEATED RBCS 1 /100WBC; POIKILOCYTOSIS SLIGHT
[2020-02-11 08:37] LABS: HYPOCHROMASIA SLIGHT; POLYCHROMASIA SLIGHT
--- NOTE | 2020-02-11 09:48 | NUR ---
per report from bedside nurse, family going to talk with dr about code status and possible comfort care. pt remains on vent. will cont following as needed for dc needs. cm left message for daughter rhys. will cont following as needed for dc needs.
--- NOTE | 2020-02-11 12:23 | NUR ---
MYSELF AND DR GARCIA SPOKE WITH PTS DAUGHTER TODAY(NEXT ON KIN) AND SHE WOULD LIKE TO PUT HER MOTHER ON COMFORT CARE. DAUGHTER WAS EDUCATED ON THE PROCESS THAT MEDICAL STAFF WILL DO AND ALSO WHAT WILL NEED TO BE DONE AT THE TIME OF PT'S . ALL COMFORT MEASURES WERE TAKEN. RT EXTUBATED PT AT 1110. PT WAS PRONOUNCED AT 1120 BY MYSELF AND OSEI ALBERTS RN. PHYSICAN NOTIFIED. DAUGHTER NOTIFIED. MTN NOTIFIED. BROADBAND ENGINEER NOTIFIED. NURSING SUMMARY COMPLETED. AWAITING DAUGHTER TO NOTIFIY ME OF HOME ARRANGEMENTS.
== END 2020-02-11 11:20 | DRG 870 ==
LOC: ER 22:10 → 3W 01-28 01:59 → EROBS 01-28 01:59 → 3W 01-28 02:50 → ICU 01-30 22:42
PROVIDERS: Emergency Medicine; Hospitalist; Internal Medicine; Internal Medicine Pulmonary Disease; Nurse Practitioner Family; Pediatrics; Specialist; ADMIT Hospitalist; ATTEND Hospitalist
PROC: 5A1955Z Respiratory Ventilation, Greater than 96 Consecutive Hours (ICD-10-PCS; principal; 2020-01-31)
PROC: 5A09357 Assistance with Respiratory Ventilation, Less than 24 Consecutive Hours, Continuous Positive Airway Pressure (ICD-10-PCS; 2020-01-31)
PROC: 02HV33Z Insertion of Infusion Device into Superior Vena Cava, Percutaneous Approach (ICD-10-PCS; 2020-01-31)
PROC: 0BH17EZ Insertion of Endotracheal Airway into Trachea, Via Natural or Artificial Opening (ICD-10-PCS; 2020-01-31)
PROC: 30233M1 Transfusion of Nonautologous Plasma Cryoprecipitate into Peripheral Vein, Percutaneous Approach (ICD-10-PCS; 2020-02-07)
PROC: 30233N1 Transfusion of Nonautologous Red Blood Cells into Peripheral Vein, Percutaneous Approach (ICD-10-PCS; 2020-02-09)
DX: A41.89 Other specified sepsis (principal); U07.1 COVID-19; J12.89 Other viral pneumonia; J96.21 Acute and chronic respiratory failure with hypoxia; J96.22 Acute and chronic respiratory failure with hypercapnia; N39.0 Urinary tract infection, site not specified; Z68.45 Body mass index [BMI] 70 or greater, adult; I13.0 Hypertensive heart and chronic kidney disease with heart failure and stage 1 through stage 4 chronic kidney disease, or unspecified chronic kidney disease; R04.2 Hemoptysis; J44.9 Chronic obstructive pulmonary disease, unspecified; J45.909 Unspecified asthma, uncomplicated; E11.40 Type 2 diabetes mellitus with diabetic neuropathy, unspecified; F41.9 Anxiety disorder, unspecified; F32.9 Major depressive disorder, single episode, unspecified; E78.5 Hyperlipidemia, unspecified; M19.90 Unspecified osteoarthritis, unspecified site; K42.9 Umbilical hernia without obstruction or gangrene; E66.01 Morbid (severe) obesity due to excess calories; M10.9 Gout, unspecified; I50.9 Heart failure, unspecified; E11.65 Type 2 diabetes mellitus with hyperglycemia; E11.22 Type 2 diabetes mellitus with diabetic chronic kidney disease; N18.3 Chronic kidney disease, stage 3 (moderate); I48.91 Unspecified atrial fibrillation; D64.9 Anemia, unspecified; Z79.01 Long term (current) use of anticoagulants; Z87.440 Personal history of urinary (tract) infections; Z90.710 Acquired absence of both cervix and uterus; Z79.4 Long term (current) use of insulin; Z79.82 Long term (current) use of aspirin; Z99.81 Dependence on supplemental oxygen; Z79.891 Long term (current) use of opiate analgesic; Z79.899 Other long term (current) drug therapy; Z88.0 Allergy status to penicillin
CPT/HCPCS: 10078; 10879